=== PATIENT | female | born 1995 | race American Indian/Alaskan Native ===

== ENCOUNTER 2018-12-05 17:27 | Emergency (ER) | payer MEDICAID ==
--- NOTE | 2018-12-05 17:48 | Event Note ---
ED Screening Note Date of service: 12/05/18 Time: 17:43 ED Screening Note: This is a 23 y.o. F. that presents to the ER with sharp achy pain to back and BLE since last night. Patient reports taking her last prescribed pain medication and ibuprofen today. Denies chest pain, sob, fever, and cough This initial assessment/diagnostic orders/clinical plan/treatment(s) is/are subject to change based on patients health status, clinical progression and re- assessment by fellow clinical providers in the ED. Further treatment and workup at subsequent clinical providers discretion. Patient/guardian urged not to elope from the ED as their condition may be serious if not clinically assessed and ma naged. Initial orders include: Labs
[2018-12-05 18:52] LABS: Hemoglobin 8.1 gm/dl (10.1-14.3); Mean Corpuscular HGB Conc 34 % (30-34); Mean Corpuscular Volume 90 fl (79-97); Platelet Count 421 K/mm3 (140-440); Red Blood Count 2.67 M/mm3 (3.65-5.03); Red Cell Distribution Width 20.9 % (13.2-15.2)
[2018-12-05 19:25] LABS: Basophils % (Manual) 0 % (0.0-1.8); Total Cells Counted 100
[2018-12-05 19:26] LABS: Anisocytosis 1+
[2018-12-05 19:27] LABS: Platelet Estimate Consistent w Auto; Sickle Cells Few; Spherocytes Few; Target Cells 1+
[2018-12-05] MEDS ORDERED: TYLENOL PO ONE (20:48)
[2018-12-05] MEDS ORDERED: TYLENOL ONE (20:52)
[2018-12-05] MEDS ORDERED: NACL 0.9% 1000 ML 1,000 ML IV ONE (23:34)
[2018-12-05] MEDS ORDERED: D5NS 0.2% 1,000 ML IV SCH (23:45)
[2018-12-05] MEDS ORDERED: DILAUDID IV ONE (23:54)
[2018-12-05] MEDS ORDERED: BENADRYL IV ONE (23:54)
[2018-12-05] MEDS ORDERED: ZOFRAN IV ONE (23:54)
[2018-12-05] MEDS ORDERED: TORADOL IV ONE (23:54)
--- NOTE | 2018-12-05 23:56 | Emergency Department Report ---
ED General Adult HPI - General Chief complaint: Sickle Cell Crisis Stated complaint: POSS UTI/YEAST INFECTION/SICKLE CELL CRISIS Time Seen by Provider: 12/05/18 17:43 Source: patient Mode of arrival: Ambulatory Limitations: No Limitations - History of Present Illness Initial comments: 23-year-old -[place] female presents to the emergency room stating she feels she's in a sickle cell crisis. Patient reports her pain is in her back and her left mid thigh. Patient states that she took her last Percocet last night and her last ibuprofen last night. Patient reports that the back pain is worse today. Patient reports she's had a spinal surgery and cholecystectomy surgery. Patient denies any chest pain shortness of breathing. Patient does have concerned that she may have a urinary tract infection and he's infection. Patient reports she has a vaginal discharge with odor. Patient is followed by Dr. Quezada at [place]. Patient states that she ran out of her pain medication. SHe reports she missed her blood exchange on Tuesday. Severity scale (0 -10): 10 - Related Data Previous Rx's Medication Instructions Recorded Last Taken Type methOCARBAMOL [Robaxin TAB] 500 mg PO Q6H PRN #14 tablet 10/15/18 Unknown Rx Ciprofloxacin HCl [Ciprofloxacin 500 mg PO Q12HR 10 Days #20 tab 11/02/18 Unknown Rx TAB] Oxycodone HCl/Acetaminophen 1 each PO Q4HR PRN #20 tablet 11/02/18 Unknown Rx [Percocet 10/325 mg] Ibuprofen [Motrin 800 MG tab] 800 mg PO Q8HR PRN #30 tablet 12/06/18 Unknown Rx metroNIDAZOLE [Flagyl] 500 mg PO Q8HR #21 tablet 12/06/18 Unknown Rx Allergies Allergy/AdvReac Type Severity Reaction Status Date / Time adhesive tape Allergy Rash Verified 10/14/18 23:02 ED Review of Systems ROS: Stated complaint: POSS UTI/YEAST INFECTION/SICKLE CELL CRISIS Other details as noted in HPI ED Past Medical Hx - Past Medical History Previous Medical History?: Yes Hx Sickle Cell Disease: Yes Hx Asthma: Yes Additional medical history: Patient has 2 rods and 14 screws in her back, High Velosity Right Brain, Blood Exchange - Surgical History Past Surgical History?: Yes Hx Cholecystectomy: Yes Additional Surgical History: Port placement in right chest - Social History Smoking Status: Current Some Day Smoker Substance Use Type: None - Medications Home Medications: Home Medications Medication Instructions Recorded Confirmed Last Taken Type methOCARBAMOL [Robaxin TAB] 500 mg PO Q6H PRN #14 tablet 10/15/18 Unknown Rx Ciprofloxacin HCl [Ciprofloxacin 500 mg PO Q12HR 10 Days #20 tab 11/02/18 Unknown Rx TAB] Oxycodone HCl/Acetaminophen 1 each PO Q4HR PRN #20 tablet 11/02/18 Unknown Rx [Percocet 10/325 mg] Ibuprofen [Motrin 800 MG tab] 800 mg PO Q8HR PRN #30 tablet 12/06/18 Unknown Rx metroNIDAZOLE [Flagyl] 500 mg PO Q8HR #21 tablet 12/06/18 Unknown Rx ED Physical Exam - General Limitations: No Limitations General appearance: alert, in no apparent distress - Head Head exam: Present: atraumatic, normocephalic - Eye Eye exam: Present: normal appearance - ENT ENT exam: Present: mucous membranes moist - Neck Neck exam: Present: normal inspection, full ROM - Respiratory Respiratory exam: Present: normal lung sounds bilaterally. Absent: respiratory distress - Cardiovascular Cardiovascular Exam: Present: regular rate, normal rhythm. Absent: systolic murmur, diastolic murmur, rubs, gallop - GI/Abdominal GI/Abdominal exam: Present: soft, normal bowel sounds. Absent: distended, tenderness - Neurological Exam Neurological exam: Present: alert, oriented X3, normal gait - Psychiatric Psychiatric exam: Present: normal mood, anxious - Skin Skin exam: Present: warm, dry, intact, normal color. Absent: rash ED Course Vital Signs 12/05/18 12/05/18 17:46 22:24 Temperature 98.4 F Pulse Rate 75 66 Respiratory 16 18 Rate Blood Pressure 112/54 124/68 [Right] O2 Sat by Pulse 98 Oximetry ED Medical Decision Making - Lab Data Result diagrams: 12/05/18 18:30 - Medical Decision Making 23-year-old -[place] female presents to the emergency room stating she feels she's in a sickle cell crisis. Patient reports her pain is in her back and her left mid thigh. Patient states that she took her last Percocet last night and her last ibuprofen last night. Patient reports that the back pain is worse today. Patient reports she's had a spinal surgery and cholecystectomy surgery. Patient denies any chest pain shortness of breathing. Patient does have concerned that she may have a urinary tract infection and he's infection. Patient reports she has a vaginal discharge with odor. Patient is followed by Dr. Quezada at [place]. Patient states that she ran out of her pain medication. SHe reports she missed her blood exchange on Tuesday. Patient was given IV fluids, Dilaudid 1 mg, Zofran 4 mg. Wet prep Chlamydia and gonorrhea sent to lab. Patient's given a second dose of Dilaudid 1 mg by mouth at 0231 Critical care attestation.: If time is entered above; I have spent that time in minutes in the direct care of this critically ill patient, excluding procedure time. ED Disposition Clinical Impression: Trichomonal vaginitis, Bacterial vaginosis, Sickle cell pain crisis Disposition: - TO HOME OR SELFCARE Is pt being admited?: No Does the pt Need Aspirin: No Condition: Stable Instructions: Bacterial Vaginosis (ED), Sexually Transmitted Diseases (ED), Safe Sex (ED), Trichomoniasis (ED) Additional Instructions: Please refrain from intercourse for the next 10 days. Complete all antibiotics as prescribed. Increase her fluid intake. Take pain medication as prescribed. Keep your appointment with her primary care provider on Tuesday. Prescriptions: metroNIDAZOLE [Flagyl] 500 mg PO Q8HR #21 tablet Ibuprofen [Motrin 800 MG tab] 800 mg PO Q8HR PRN #30 tablet PRN Reason: pain Referrals: [facility] [Provider Group] - 3-5 Days PRIMARY MD MARY JANE [Primary Care Provider] - 3-5 Days SADE QUEZADA MD [Referring] - 3-5 Days Forms: STI Treatment and Prevention
[2018-12-06 00:38] LABS: Bacteria,Urine 4+ /HPF (Negative); Bilirubin,Urine NEG (Negative); Blood,Urine SM (Negative); Color,Urine Yellow (Yellow); Mucus,Urine 1+ /HPF; Urobilinogen,Urine < 2.0 mg/dL (<2.0)
[2018-12-06 00:41] LABS: HCG Qualitative,Urine Negative (Negative)
[2018-12-06] MEDS ORDERED: ROXICODONE PO ONE (02:27)
[2018-12-06] MEDS ORDERED: DILAUDID IV ONE ×2 (02:29→04:24)
[2018-12-06] MEDS ORDERED: ROCEPHIN/NS 1 GM/50 ML 1 GM/50 ML BAG IV ONE ×2 (03:17→06:05)
[2018-12-06] MEDS ORDERED: IBUPROFEN PO ONE (04:24)
[2018-12-06] MEDS ORDERED: ZITHROMAX PO ONE (04:25)
[2018-12-06] MEDS ORDERED: ZITHROMAX ONE (06:05)
[2018-12-06 06:55] VITALS: BP 131/84
[2018-12-06] MEDS ORDERED: FLUSH HEPARIN IV ONE ×2 (07:50→07:55)
== END 2018-12-06 07:50 | disposition home or self-care (01) ==
LOC: ED 17:27
DX: D57.00 Hb-SS disease with crisis, unspecified (principal); A59.01 Trichomonal vulvovaginitis; B96.89 Other specified bacterial agents as the cause of diseases classified elsewhere; J45.909 Unspecified asthma, uncomplicated; F17.200 Nicotine dependence, unspecified, uncomplicated; Z90.49 Acquired absence of other specified parts of digestive tract; Z79.899 Other long term (current) drug therapy; Z91.09 Other allergy status, other than to drugs and biological substances
CPT/HCPCS: 36415; 81001; 81025; 85007; 85025; 85045; 87086; 87210; 87591; 96365; 96375; 96376; 99284; J0696; J1170; J1200; J1642; J1885; J2405; 87076; 87186

== ENCOUNTER 2018-12-06 08:17 | Emergency (ER) | payer MEDICAID ==
[2018-12-06 08:26] VITALS: BP 105/66
--- NOTE | 2018-12-06 09:18 | Emergency Department Report ---
Chief Complaint: Sickle Cell Crisis Stated Complaint: SICKLE CELL Time Seen by Provider: 12/06/18 09:17 - HPI History of Present Illness: SSD - ROS Review of Systems: CO ONGOING GENERAL PAIN SHELLEY RLE - Exam Vital Signs: Vital Signs 12/06/18 08:20 Temperature 98.0 F Pulse Rate 64 Respiratory 20 Rate Blood Pressure 105/66 O2 Sat by Pulse 99 Oximetry Physical Exam: A/O NAD AMBULATORY MSE screening note: Focused history and physical exam performed. Due to findings the following was ordered: WILL SEE HER PCP DR QUEZADA FOR ADDITIONAL NARCOTICS SEE [place] PMD DATABASE Patient discussed with doctor:: RANJIT MCGINNIS ED Disposition for MSE Condition: Stable
== END 2018-12-06 09:23 | disposition left against medical advice (07) ==
LOC: ED 08:17
DX: D57.00 Hb-SS disease with crisis, unspecified (principal); Z53.21 Procedure and treatment not carried out due to patient leaving prior to being seen by health care provider
CPT/HCPCS: 99282